=== PATIENT | female | born 1970 | race Caucasian/White ===

== ENCOUNTER 2018-02-27 14:57 | Inpatient (IN) | payer BC, OTHER ==
[~2018-02-27] VITALS: Ht 165.1 cm; Wt 125.0 kg
[~2018-02-27 14:57] MED LIST: ATENOLOL50 MG PO; MELOXICAM PO; NORCO 5-325 TA1 EACH PO
[2018-02-27] MEDS ORDERED: ASPIRIN 81 MG CHEW TAB PO ONE ×4 (15:15→21:30)
--- NOTE | 2018-02-27 15:38 | Diagnostic Imaging Report ---
PROCEDURE: A single AP view of the chest. COMPARISON: 03/22/2013 INDICATIONS: CHEST PAIN , SOB 2 DAYS FINDINGS: Examination is limited due to portable technique and patient rotation. Lines/tubes: None. Lungs: Nonspecific basilar opacities. Pleura: There is no pleural effusion or pneumothorax. Heart and mediastinum: The heart and the mediastinum are unremarkable. Bones: No acute bony abnormality. IMPRESSION: Limited examination due to patient rotation. Nonspecific basilar opacities could represent atelectasis or edema. Dictated by: Jim Cho M.D. on 02/27/2018 at 15:39 Electronically approved by: Jim Cho M.D. on 02/27/2018 at 15:39
[2018-02-27 15:47] LABS: BASOPHILS % 0.4 % (0.0-1.0); EOSINOPHILS # (AUTO) 0.2 (0.0-0.4); EOSINOPHILS % 1.4 % (0.0-6.0); HEMATOCRIT 43.1 % (34.2-44.1); HEMOGLOBIN 13.6 g/dL (12.0-16.0); LYMPHOCYTES # (AUTO) 2.5 (1.0-3.2); LYMPHOCYTES % 23.4 % (18.0-39.1); MEAN CORPUSCULAR HGB CONC 31.6 g/dL (31-35); MEAN CORPUSCULAR VOLUME 79.4 fL (81-99); MONOCYTES # (AUTO) 0.7 (0.2-0.8); MONOCYTES % 6.4 % (4.4-11.3); NEUTROPHILS # (AUTO) 7.1 (2.1-6.9); NEUTROPHILS % 68.1 % (38.7-80.0); PLATELET COUNT 267 x10e3/uL (140-360); RED BLOOD COUNT 5.43 x10e6/uL (3.6-5.1); RED CELL DISTRIBUTION WIDTH 15.8 % (11.7-14.4)
[2018-02-27 16:03] LABS: ALANINE AMINOTRANSFERASE 129 IU/L (0-55); ALBUMIN 3.1 g/dL (3.5-5.0); ALBUMIN/GLOBULIN RATIO 0.7 (0.8-2.0); ALKALINE PHOSPHATASE 134 IU/L (40-150); BLOOD UREA NITROGEN 11 mg/dL (7-26); BUN/CREATININE RATIO 14 (6-25); CALCIUM 9.5 mg/dL (8.4-10.2); CARBON DIOXIDE 28 mmol/L (22-29); CHLORIDE 98 mmol/L (98-107); CREATINE KINASE 28 IU/L (29-168); CREATININE, SERUM 0.77 mg/dL (0.57-1.11); EST GLOMERULAR FILTRATION RATE > 60 ML/MIN (60-); GLUCOSE 303 mg/dL (74-118); SODIUM 137 mmol/L (136-145)
[2018-02-27] MEDS ORDERED: HYDROCODONE/APAP 10MG-325MG TAB PO ONE (16:15)
[2018-02-27] MEDS ORDERED: SODIUM CHLORIDE 0.9% 50ML 50 ML ONE (17:32)
[2018-02-27] MEDS ORDERED: IOPAMIDOL 370 MG/ML 200 ML INFUS..BTL INJ ONE (17:33)
--- NOTE | 2018-02-27 17:42 | Diagnostic Imaging Report ---
PROCEDURE: CT scan of the chest WITH intravenous contrast, using standard protocol. TECHNIQUE: The chest was scanned utilizing a multidetector helical scanner from the lung apex through the level of the adrenal glands after the IV administration of 95 cc of Isovue 370. Coronal and sagittal multiplanar reformations were obtained. COMPARISON: None. INDICATIONS: CHEST PAIN, SHORTNESS OF BREATH FINDINGS: Limited examination due to respiratory motion artifact. Lines/tubes: None. Pulmonary Arteries: No evidence of pulmonary embolus to at least the segmental level. Evaluation of the small, subsegmental arteries is somewhat limited by motion artifact. The main pulmonary artery is normal in caliber, measuring 2.9 cm. Lungs and Airways: Mosaic attenuation of the lung parenchyma is likely related to air-trapping. Evaluation of the lung bases is limited due to respiratory motion artifact. Large airways are patent. Pleura: The pleural spaces are clear. Heart and mediastinum: The thyroid gland is normal. No significant mediastinal, hilar or axillary lymphadenopathy is seen. Mild cardiomegaly. No pericardial effusion. Atherosclerotic calcifications of the coronary arteries. Soft tissues: Normal. Abdomen: Hepatomegaly and diffuse hepatic steatosis. Small hiatal hernia. Bones: Multilevel degenerative changes of the thoracic spine. IMPRESSION: Somewhat limited examination due to respiratory motion artifact. No evidence of pulmonary embolus to at least the segmental level. Mosaic attenuation of the lung parenchyma, likely related to air-trapping. This can be seen with small airways disease (such as asthma). Dictated by: Jim Cho M.D. on 02/27/2018 at 17:43 Electronically approved by: Jim Cho M.D. on 02/27/2018 at 17:43
[2018-02-27] MEDS ORDERED: SODIUM CHLORIDE 0.9% 500ML 500 ML ONE (17:53)
[2018-02-27] MEDS ORDERED: DEXTROSE 50% SYRINGE 50 ML IV PRN (18:30)
[2018-02-27] MEDS ORDERED: NITROGLYCERIN 0.4 MG SUBL SL PRN (18:30)
[2018-02-27] MEDS ORDERED: HYDROMORPHONE 1MG/1ML INJ IV PRN (18:30)
--- OUTSIDE RECORDS SUMMARY | 2018-02-27 19:20 | XMS REPORT ---
Author Author [facility] Address Unknown Phone Unavailable Care Team Providers Care Circle Saw Operator Name Role Phone PABLO DOTSON Unavailable Unavailable Problems This patient has no known problems. Allergies, Adverse Reactions, Alerts This patient has no known allergies or adverse reactions. Medications This patient has no known medications. Results Test Description Test Time Test Comments Text Results Atomic Results Result Comments CHEST SINGLE (PORTABLE) [place] [address] Patient Name: KATERYNA CONNER MR #: [id number] : 1970 Age/Sex: 48/F Req #: [id number] Adm Physician: Ordered by: MARY LEO JUKE BOX MECHANIC Report #: [id number] Location: ER Room/Bed: ___ Procedure: [id number] DX/CHEST SINGLE (PORTABLE) Exam Date: 02/27/18 Exam Time: 1515 REPORT STATUS: Signed PROCEDURE : A single AP view of the chest. COMPARISON: 03/22/2013 INDICATIONS : CHEST PAIN , SOB 2 DAYS FINDINGS: Examination is limited due to portable technique and patient rotation. Lines/tubes: None. Lungs: Nonspecific basilar opacities. Pleura: There is no pleural effusion or pneumothorax. Heart and mediastinum: The heart and the mediastinum are unremarkable. Bones: No acute bony abnormality. IMPRESSION: Limited examination due to patient rotation. Nonspecific basilar opacities could represent atelectasis or edema. Dictated by: Estrella Cho M.D. on 02/27/2018 at 15:39 Electronically approved by: Estrella Cho M.D. on 02/27/2018 at 15:39 Dictated By: ESTRELLA CHO MD 1539 Transcribed By: MARICEL on 02/27/18 1539 COPY TO: MARY LEO JUKE BOX MECHANIC CT CHEST W [place] [address] Patient Name: KATERYNA CONNER MR #: [id number] : 1970 Age/Sex: 48/F Req #: [id number] Adm Physician: Ordered by: MARY LEO NP Report #: [id number] Location: ER Room/Bed: Procedure: [id number] CT/CT CHEST W Exam Date: 02/27/18 Exam Time: 1700 REPORT STATUS: Signed PROCEDURE: CT scan of the chest WITH intravenous contrast, using standard protocol. TECHNIQUE: The chest was scanned utilizing a multidetector helical scanner from the lung apex through the level of the adrenal glands after the IV administration of 95 cc of Isovue 370. Coronal and sagittal multiplanar reformations were obtained. COMPARISON: None. INDICATIONS: CHEST PAIN, SHORTNESS OF BREATH FINDINGS: Limited examination due to respiratory motion artifact. Lines/tubes: None. Pulmonary Arteries : No evidence of pulmonary embolus to at least the segmental level. Evaluation of the small, subsegmental arteries is somewhat limited by motion artifact. The main pulmonary artery is normal in caliber, measuring 2.9 cm. Lungs and Airways: Mosaic attenuation of the lung parenchyma is likely related to air-trapping. Evaluation of the lung bases is limited due to respiratory motion artifact. Large airways are patent. Pleura: The pleural spaces are clear. Heart and mediastinum: The thyroid gland is normal. No significant mediastinal, hilar or axillary lymphadenopathy is seen. Mild cardiomegaly. No pericardial effusion. Atherosclerotic calcifications of the coronary arteries. Soft tissues: Normal. Abdomen: Hepatomegaly and diffuse hepatic steatosis. Small hiatal hernia. Bones: Multilevel degenerative changes of the thoracic spine. IMPRESSION: Somewhat limited examination due to respiratory motion artifact. No evidence of pulmonary embolus to at least the segmental level. Mosaic attenuation of the lung parenchyma, likely related to air -trapping. This can be seen with small airways disease (such as asthma). Dictated by: Estrella Cho M.D. on 02/27/2018 at 17:43 Electronically approved by: Estrella Cho M.D. on 02/27/2018 at 17:43 Dictated By: ESTRELLA CHO MD 1743 Transcribed By: MARICEL on 02/27/18 1743 COPY TO: MARY LEO NP
[2018-02-27] MEDS ORDERED: SODIUM CHLORIDE 0.9% 1000ML 1,000 ML IV SCH (20:15)
[2018-02-27] MEDS ORDERED: SODIUM CHLORIDE 0.9% 1000ML 1,000 ML ONE (20:20)
[2018-02-27] MEDS ORDERED: SODIUM CHLORIDE 0.9% 1000ML 1,000 ML IV STA (20:48)
[2018-02-27 21:00] VITALS: BP 137/84
[2018-02-27] MEDS ORDERED: INSULIN REGULAR, HUMAN 100 UNIT/1 ML 3ML VIAL SQ SCH (21:00)
[2018-02-27 21:55] VITALS: BP 200/104
[2018-02-27] MEDS: HYDROMORPHONE 2MG/ML INJ IV PRN (22:10)
[2018-02-27 22:53] LABS: CREATINE KINASE MB 1.2 ng/mL (0-5.0)
[2018-02-27 23:19] LABS: INR 1.13; PARTIAL THROMBOPLASTIN TIME 30.9 seconds (23.8-35.5); PROTHROMBIN TIME 13.6 seconds (11.9-14.5)
[2018-02-27] MEDS: FUROSEMIDE INJ 10 MG/ML 2 ML VIAL IV SCH (23:28)
[2018-02-27] MEDS: NIFEDIPINE CR 30 MG TAB PO SCH (23:28)
[2018-02-27] MEDS: LABETALOL HCL 100 MG TAB PO SCH (23:29)
[2018-02-28] VITALS (10 sets, daily range): BP systolic 120–200; BP diastolic 61–104
[2018-02-28] MEDS: HYDROMORPHONE 2MG/ML INJ IV PRN (03:04)
[2018-02-28] MEDS ORDERED: NALOXONE HCL INJ 0.4 MG/ML AMP ONE (05:13)
[2018-02-28 06:42] LABS: CREATINE KINASE MB 1.9 ng/mL (0-5.0)
[2018-02-28] MEDS ORDERED: INSULIN REGULAR, HUMAN 100 UNIT/1 ML 3ML VIAL SQ ONE (08:15)
[2018-02-28] MEDS ORDERED: DEXTROSE 50% SYRINGE 50 ML IV PRN (08:15)
[2018-02-28] MEDS: ASPIRIN 325 MG TAB EC PO SCH (08:21)
[2018-02-28] MEDS: FAMOTIDINE 20 MG TAB PO SCH ×2 (08:21→17:48)
[2018-02-28] MEDS: FUROSEMIDE INJ 10 MG/ML 2 ML VIAL IV SCH ×2 (08:21→17:48)
[2018-02-28] MEDS: NIFEDIPINE CR 30 MG TAB PO SCH (08:22)
[2018-02-28] MEDS: LABETALOL HCL 100 MG TAB PO SCH (08:22)
--- NOTE | 2018-02-28 10:25 | Cardiology Report ---
DATE OF STUDY: February 27, 2018 ECHOCARDIOGRAM M-MODE: Dilated left atrium. Left ventricular hypertrophy. Normal contractility. Normal mitral and aortic valves. No pericardial effusion. SECTOR SCAN: Mildly dilated left atrium. Left ventricular hypertrophy. Normal contractility. Ejection fraction is approximately 60%. Mitral, aortic and tricuspid valves are grossly normal. There is no pericardial effusion. CARDIAC DOPPLER STUDY WITH COLOR: Trace mitral and tricuspid regurgitation. CONCLUSIONS 1. Left ventricular hypertrophy with ejection fraction of approximately 60%. 2. Trace mitral regurgitation with mildly dilated left atrium. 3. Trace tricuspid regurgitation. Job#: [id number] cc:PABLO DOTSON MD
--- NOTE | 2018-02-28 10:59 | Consultation ---
DATE OF CONSULTATION: CARDIOLOGY CONSULTATION CLINICAL HISTORY: This is a 48-year-old white woman referred by Dr. Apryl Sanz for evaluation of chest pains with a history of previous CVA and previous stenting. This patient had a coronary stent implanted 12 years ago in [place], [place]. Subsequently, she developed chest pains and had a stroke approximately 6 years ago. According to her, she has had a repeat cardiac catheterization in [place] somewhere around 6 years ago, which was negative. She has now currently moved to the [place] area. Has not had any cardiac evaluation. Has not any complaints of chest pains. Two days prior to admission, she was at work when she developed severe palpitations with pain radiating to the upper chest. She became near syncopal and fell to her rear, but did not completely become unconscious. She did not want to go to the emergency room. Over the next 2 days, she continued to have persistent chest pains rated as 7 on a scale of 10. She also had some chest wall tenderness. She finally decided to come to the emergency room. EKG failed to show any acute changes. She is being admitted for further evaluation and treatment. PAST MEDICAL HISTORY: Remarkable for the above-mentioned CVA with left-sided paralysis. MEDICATIONS: Include [place] and meloxicam. ALLERGIES: PENICILLIN AND MORPHINE. PERSONAL/SOCIAL HISTORY: She continues smoke 1/2 package per day. She denies excessive drinking. She denies any drug abuse. 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 REVIEW OF SYSTEMS: Noncontributory. She does have lower back pains possibly from the fall she had 2 days ago. FAMILY HISTORY: Remarkable for coronary artery disease. PHYSICAL EXAMINATION GENERAL: She is markedly obese, alert and coherent. Difficult to arouse because of sedatives and pain medications. CARDIAC: Jugular veins are not distended. S1 and S2 were distant. There is no appreciable murmur. LUNGS: Clear. ABDOMEN: Soft. Bowel sounds are present. EXTREMITIES: Showed no cyanosis, clubbing or edema. LABORATORY STUDIES: The echocardiogram showed normal left ventricular function. EKG showed no acute changes. CT scan of the chest is limited because of respiratory artifact. Apparently, no acute findings. Blood test: White count 10,000, hemoglobin 13.6 and platelet count 267,000. Toxicology is pending. Cardiac enzymes are negative times 3. Cholesterol 184, triglycerides 151, HDL 37. TSH is normal at 0.84. IMPRESSION 1. Atypical chest pains and tenderness, which has been persistent requiring Dilaudid: Consider musculoskeletal chest pains as well as coronary artery disease. 2. History of coronary stenting approximately 12 years ago in [place] with cardiac catheterization somewhere 6 or 7 years ago in [place] and said to be negative. 3. History of cerebrovascular accident with left-sided weakness. 4. Hypertension. 5. Cigarette smoking. 6. Allergies to penicillin and morphine. 7. Obesity. 8. Chronic pain medication usage. 9. History of anxiety and depression. RECOMMENDATIONS: Because of persistent chest pains and previous cardiac history, consider cardiac catheterization since we are unlikely to clearly resolve the issue with either nuclear imaging or with stress testing because of her obesity. Additionally, she had an episode of near syncope, which is suggestive of significant cardiac arrhythmia since she had palpitations and chest pains at that time. Additional cardiac catheterization, consider electrophysiology consultation. Job#: [id number] RI cc:APRYL SANZ MD
--- NOTE | 2018-02-28 11:21 | History and Physical ---
PRIMARY CARE PHYSICIAN: None CHIEF COMPLAINT: Chest pain. HISTORY OF PRESENT ILLNESS: A 48-year-old woman with a history of coronary artery disease with stent placement in 2005 and history of congestive heart failure with continued cigarette use, now developing chest discomfort. She describes the chest pain across the precordium. No fever or chills. Mild shortness of breath. She has chronic leg edema. Overnight, the patient received Dilaudid and became unresponsive. Rapid was called. The patient received 0.8 units of Narcan with improvement in symptoms. PAST MEDICAL HISTORY: Congestive heart failure, type unknown, hypertension, cigarette abuse, stroke in 2010, coronary artery disease, status post stent in 2005. PAST SURGICAL HISTORY: Coronary stent placement, appendectomy, temporal biopsy. ALLERGIES: PER ELECTRONIC MEDICAL RECORD. FAMILY HISTORY/SOCIAL HISTORY: Patient is single. She has 1 child. No alcohol or illicits. She smokes half a pack of cigarettes per day. MEDICATIONS: Per electronic medical record. REVIEW OF SYSTEMS: Denies any dizziness, fever, chills, or sweats. PHYSICAL EXAMINATION VITAL SIGNS: Have been reviewed. GENERAL: A tired-appearing woman resting in bed. HEENT: Anicteric. CARDIOVASCULAR: Normal S1 and S2. LUNGS: Moderate breath sounds. ABDOMEN: Soft, nontender and nondistended. EXTREMITIES: She has 1+ leg edema bilaterally. SKIN: Dry. PSYCHIATRIC: Flat affect. NEUROLOGIC: Somnolent and falling asleep quickly after being awoken each time. MUSCULOSKELETAL: Tender in the precordium. LABS: Reviewed. MEDICATIONS: Reviewed. ASSESSMENT AND PLAN: A 48-year-old woman with: 1. Chest pain, likely musculoskeletal: She is tender on palpation of the chest wall. Cardiac enzymes are negative times 3. Will follow up cardiology recommendations. Echocardiogram shows normal left ventricular ejection fraction of 55% to 60%. 2. Congestive heart failure with leg edema: Will continue Lasix 20 mg intravenously q.12 h. Follow I's and O's. 3. Acute transaminitis: Will follow up. 4. Hyperglycemia in the setting of morbid obesity: Will screen for diabetes and obtain lipid panel. 5. Morbid obesity: Screen for diabetes. 6. Hypertensive urgency: Will treat with medication regimen. 7. Excess narcotics during hospitalization: Received Narcan. Will monitor and will decide if she needs a Narcan drip. 8. Prophylaxis: Will use Pepcid and Lovenox. 9. Disposition: Monitor closely. Obtain hemoglobin A1c. Use sliding scale insulin. Monitor cognitive status. Job#: [id number] KATHE
[2018-02-28] MEDS: INSULIN REGULAR, HUMAN 100 UNIT/1 ML 3ML VIAL SQ SCH ×3 (11:30→21:15)
[2018-02-28] MEDS: INSULIN DETEMIR 100 UNIT/ML PEN SQ SCH (12:00)
[2018-02-28] MEDS: ACETAMINOPHEN 325 MG TAB PO PRN (15:58)
[2018-02-28] MEDS ORDERED: ENOXAPARIN SOD INJ 40 MG/0.4 ML SYR SC SCH (17:00)
[2018-02-28 23:00] LABS: CREATINE KINASE MB 2.1 ng/mL (0-5.0)
[2018-03-01 00:04] VITALS: BP 153/96
[2018-03-01] MEDS: NIFEDIPINE CR 30 MG TAB PO SCH ×3 (02:50→20:43)
[2018-03-01] MEDS: LABETALOL HCL 100 MG TAB PO SCH ×3 (02:50→20:44)
[2018-03-01 05:12] VITALS: BP 117/80
[2018-03-01] MEDS ORDERED: AMIODARONE HCL 200 MG TAB PO ONE (06:00)
[2018-03-01] MEDS: AMIODARONE HCL 200 MG TAB PO SCH ×3 (06:05→21:41)
[2018-03-01 08:00] VITALS: BP 120/58
[2018-03-01] MEDS: INSULIN REGULAR, HUMAN 100 UNIT/1 ML 3ML VIAL SQ SCH ×2 (08:07→12:27)
[2018-03-01 10:13] VITALS: BP 120/58
[2018-03-01] MEDS: ASPIRIN 325 MG TAB EC PO SCH (10:13)
[2018-03-01] MEDS: FUROSEMIDE INJ 10 MG/ML 2 ML VIAL IV SCH ×2 (10:13→16:44)
[2018-03-01] MEDS: FAMOTIDINE 20 MG TAB PO SCH ×2 (10:13→16:43)
[2018-03-01] MEDS: INSULIN DETEMIR 100 UNIT/ML PEN SQ SCH (10:15)
[2018-03-01 16:00] VITALS: BP 120/57
[2018-03-01] MEDS: INSULIN LISPRO 100 UNIT/1 ML 3ML VIAL SQ SCH ×3 (16:43→20:44)
[2018-03-01] MEDS: ENOXAPARIN SODIUM INJ 100 MG/ML SYR SC SCH (16:44)
--- NOTE | 2018-03-01 16:55 | Consultation ---
DATE OF CONSULTATION: REFERRING PHYSICIAN: Dr. Dean. REASON FOR CONSULT: Palpitations and syncope. HISTORY OF PRESENT ILLNESS: This is a 48-year-old woman with history of hypertension, diabetes, and obesity who has had palpitations. She states palpitations started about 4 months ago off and on. She feels palpitations were lasting about 1 to 5 minutes about every 3 or 4 weeks, she has had episodes of near syncope. She states she passed out once; however, does not remember if it was related to palpitations or not at that time and that occurred about 3 months ago. Patient at this time states she felt palpitations, she felt blurred vision and about to pass out, but she still remembered everything that happened so it is unclear whether she passed out or not. She does remember having palpitations prior to the episode. REVIEW OF SYSTEMS CONSTITUTIONAL: Negative. CARDIOVASCULAR: Otherwise, negative. RESPIRATORY: Negative. GASTROINTESTINAL: Negative. GENITOURINARY: Negative. MUSCULOSKELETAL: Negative. EYES: Negative. ENT: Negative. ALLERGY/IMMUNOLOGY: Negative. PSYCHIATRY: Negative. PAST MEDICAL HISTORY: Hypertension and diabetes. SURGICAL HISTORY: Negative. FAMILY HISTORY: No premature coronary artery disease. SOCIAL HISTORY: No smoking, alcohol, or illicit drugs. PHYSICAL EXAMINATION VITAL SIGNS: Blood pressure 146/60, pulse 70, respiration 20, and O2 sat is 98%. GENERAL: In no acute distress. HEENT: Moist mucous membranes. CARDIOVASCULAR: Regular. RESPIRATORY: Clear. ABDOMEN: Soft. MUSCULOSKELETAL: 2+ distal pulses. NEUROLOGICAL: No focal deficit. SKIN: No lesions. PSYCHIATRY: Normal thought process. EKG: Sinus rhythm. IMPRESSION: Palpitations and near syncope episodes. RECOMMENDATIONS: Patient is undergoing close monitoring. Currently, she is in sinus rhythm on telemetry with no arrhythmias. Patient has had some palpitations that may correlate with arrhythmias. At this time, I agree with current workup by Dr. Dean. He is going to perform ischemic workup since she has history of coronary stents, best recommendation is to have close monitoring. We will arrange for a 3 or 4-week event monitoring as an outpatient in clinic. If this does not catch any of the events, then we will consider a loop recorder monitoring. Thank you for letting us participate in [facility]. For now, I agree with continuing the beta leah. Job#: [id number] ERENDIRA
--- NOTE | 2018-03-01 17:17 | Progress Note ---
DATE: March 01, 2018 PROGRESS NOTE TIME: 1600 hours. OVERNIGHT: New-onset of AFib with RVR, refused Nitro for reports of chest pain. REVIEW OF SYSTEMS: Patient continues to complain of chest pain and mild shortness of breath. Patient further reports gasping during night when she tries to sleep. Denies nausea, vomiting, or diarrhea. Continues to report headache and occasional dizziness. PHYSICAL EXAMINATION VITAL SIGNS: Temperature 96.2, pulse 107 and irregular on telemetry, respiratory rate 19, blood pressure 120/58, and O2 sat 97% on 2 liters. GENERAL APPEARANCE: This is a tired-appearing, lying supine in bed. HEENT: Normocephalic. Slight sinus tenderness. Nares patent. Oropharynx poorly visualized due to tissue. CARDIOVASCULAR: S1 and S2 auscultated with irregular rate noted. LUNGS: Moderate breath sounds at bases. ABDOMEN: Soft, not tender, and not distended. EXTREMITIES: Leg edema +1 to bilateral lower extremities. SKIN: Dry. PSYCHIATRIC: Flat affect. NEUROLOGICAL: Cranial nerves 2 through 12 intact. Positive gross motor intact. MUSCULOSKELETAL: Slight tenderness to the precordium upon palpation. LABS: WBCs are 10.48, H and H 13.6 and 43.1 respectively, and platelets 267. Chemistries reviewed. Toxicologies are pending. MEDICATIONS 1. Amiodarone 400 mg p.o. q. 8 hours. 2. Sliding scale insulin. 3. Insulin Detemir 7 units subcu daily. 4. Pepcid 20 mg b.i.d. a.c. 5. Lasix 20 mg b.i.d. IV. 6. Nifedipine 60 mg q. 12 hours p.o. 7. Labetalol 100 mg q. 12 hours p.o. 8. Aspirin 325 mg in the morning. 9. P.r.n. Nitrostat. 10. P.r.n. Tylenol. 11. Lovenox 100 mg b.i.d. subcu; initial dose pending. 12. Fioricet q. 8 hours p.r.n. headache. 13. P.r.n. dextrose. 14. P.r.n. sodium chloride. ASSESSMENT AND PLAN: This is a 48-year-old woman with; 1. Chest pain, most likely musculoskeletal as troponins were negative. Left ventricular ejection fraction 55%-60%. Possible coronary artery disease with cardiac catheterization pending. 2. Congestive heart failure with leg edema, continue diuresis with Lasix q. 12 hours. I and O negative approximately 7 liters since admission. 3. Acute transaminitis, follow along. 4. Hyperglycemia in the setting of morbid obesity, hemoglobin A1c 9.5, triglycerides 151, cholesterol 184, LDL 117, and HDL 37. We will initiate tighter glucose control. 5. Morbid obesity. 6. Hypertensive urgency, treated per medication regimen. Cardiology consult noted this day. 7. Excessive narcotics during hospitalization. Narcan provided and episode resolved. 1. Prophylaxis, Pepcid and Lovenox. 2. Disposition. We will advance sliding scale insulin, patient being loaded per cardiology with amiodarone and anticoagulation initiated per cardiology for atrial fibrillation with rapid ventricular rate. We will follow values in the morning. Dictated by Celina Fernandes NP. Job#: [id number] ERENDIRA
[2018-03-01 17:53] LABS: FREE T4 (FREE THYROXINE) 1.09 ng/dL (0.9-1.8); THYROID STIMULATING HORMONE 3.399 uIU/mL (0.350-4.940)
--- NOTE | 2018-03-01 18:45 | Consultation ---
DATE OF CONSULTATION: February 28, 2018 ENDOCRINE CONSULTATION PATIENT OF: 1. Dr. Martinez. 2. Dr. Bae. Thank you very much for referring this patient. HISTORY OF PRESENT ILLNESS: This is a 48-year-old white female who is referred to me for evaluation of new-onset hyperglycemia and diabetes mellitus. Patient came to the hospital with history of chest pain. She has a significant history of coronary artery disease, congestive cardiac failure, and status post coronary stent placement. She also has history of hypertension, hyperlipidemia, she is an ex-smoker, and status post CVA in the past. Patient does have family history of diabetes mellitus. Patient is on multiple medications presently including labetalol, amiodarone for cardiac arrhythmias, and Lasix. PHYSICAL EXAMINATION GENERAL: Today, the patient is alert and awake, a little bit apprehensive. She is moderate to morbidly obese. VITALS: Her heart rate is around 86 and blood pressure 136/86 mmHg. HEENT: Essentially unremarkable. Thyroid is palpable. Clinically, she is near euthyroid. CHEST: Bilateral vesicular breathing. She is with bilateral bronchospasm and basilar rales. CARDIAC: First and second heart sounds. There is no third or fourth heart sounds. Ejection systolic murmur grade 2/6. EXTREMITIES: The patient has evidence of diabetic sensory neuropathy in both lower extremities. CLINICAL IMPRESSION 1. New-onset hyperglycemia, diabetes mellitus type 2, uncontrolled with complications. 2. Coronary artery disease, status post stent placement. 3. Chronic obstructive pulmonary disease, ex-smoker. 4. Status post cardiovascular accident. 5. Hypertension. 6. Cardiac arrhythmias. PLAN: The plan at this time is to do a free T4, TSH, anti-peroxidase antibodies, and glycohemoglobin repeat. We will be starting on the combination of the Levemir and Humalog insulin. Monitor her blood sugars closely. Patient needs extensive dietary education and stop smoking completely. Thank you for referring this patient. I will be following this patient with you. Job#: [id number] ERENDIRA
[2018-03-01 20:00] VITALS: BP 123/63
[2018-03-01] MEDS ORDERED: INSULIN DETEMIR 100 UNIT/ML PEN SQ SCH (21:00)
[2018-03-02] VITALS (8 sets, daily range): BP systolic 117–132; BP diastolic 64–77
[2018-03-02] MEDS: AMIODARONE HCL 200 MG TAB PO SCH ×3 (05:26→21:35)
[2018-03-02 06:20] LABS: BASOPHILS # (AUTO) 0.1 (0.0-0.1); BASOPHILS % 0.6 % (0.0-1.0); EOSINOPHILS # (AUTO) 0.3 (0.0-0.4); EOSINOPHILS % 3.2 % (0.0-6.0); HEMOGLOBIN 12.2 g/dL (12.0-16.0); LYMPHOCYTES % 23.2 % (18.0-39.1); MEAN CORPUSCULAR HEMOGLOBIN 24.5 pg (28-32); MEAN CORPUSCULAR HGB CONC 30.5 g/dL (31-35); MEAN CORPUSCULAR VOLUME 80.5 fL (81-99); MONOCYTES # (AUTO) 0.5 (0.2-0.8); MONOCYTES % 5.9 % (4.4-11.3); NEUTROPHILS # (AUTO) 5.7 (2.1-6.9); NEUTROPHILS % 66.7 % (38.7-80.0); PLATELET COUNT 232 x10e3/uL (140-360); RED BLOOD COUNT 4.97 x10e6/uL (3.6-5.1); RED CELL DISTRIBUTION WIDTH 15.7 % (11.7-14.4)
--- NOTE | 2018-03-02 06:32 | Diagnostic Imaging Report ---
EXAM: CHEST SINGLE (PORTABLE), AP 1 view INDICATION: Congestive heart failure COMPARISON: AP view of the chest February 27, 2018 FINDINGS: LINES/TUBES: None LUNGS: Stable interstitial edema PLEURA: No effusions or pneumothorax. HEART AND MEDIASTINUM: Stable appearance BONES AND SOFT TISSUES: No acute findings. IMPRESSION: No significant interval change. Interstitial edema. Signed by: Dr. Araceli Anderson M.D. on 03/02/2018 6:28 AM
[2018-03-02 06:45] LABS: ANION GAP 13.9 mmol/L (8-16); BLOOD UREA NITROGEN 12 mg/dL (7-26); BUN/CREATININE RATIO 18 (6-25); CALCIUM 9.1 mg/dL (8.4-10.2); CARBON DIOXIDE 29 mmol/L (22-29); CHLORIDE 98 mmol/L (98-107); CREATININE, SERUM 0.65 mg/dL (0.57-1.11); EST GLOMERULAR FILTRATION RATE > 60 ML/MIN (60-); GLUCOSE 211 mg/dL (74-118); POTASSIUM 3.9 mmol/L (3.5-5.1); SODIUM 137 mmol/L (136-145)
[2018-03-02] MEDS: INSULIN LISPRO 100 UNIT/1 ML 3ML VIAL SQ SCH ×5 (07:30→21:34)
[2018-03-02] MEDS: LABETALOL HCL 100 MG TAB PO SCH ×2 (08:02→21:33)
[2018-03-02] MEDS: NIFEDIPINE CR 30 MG TAB PO SCH ×2 (08:02→21:33)
[2018-03-02] MEDS: FAMOTIDINE 20 MG TAB PO SCH ×2 (08:02→17:05)
[2018-03-02] MEDS: FUROSEMIDE INJ 10 MG/ML 2 ML VIAL IV SCH ×2 (08:02→17:06)
[2018-03-02] MEDS: ASPIRIN 325 MG TAB EC PO SCH (08:02)
[2018-03-02] MEDS: ENOXAPARIN SODIUM INJ 100 MG/ML SYR SC SCH ×2 (08:02→17:22)
[2018-03-02] MEDS: ACETAMIN/BUTALBITAL/CAFFEINE TAB PO PRN ×2 (12:14→21:45)
--- NOTE | 2018-03-02 12:14 | Progress Note ---
DATE: March 02, 2018 TIME: 11:15 a.m. OVERNIGHT: No acute events. Patient transferred from one floor to another related to in-room mechanical issues. REVIEW OF SYSTEMS: Patient reports no chest pain or shortness of breath at this time. Denies nausea, vomiting or diarrhea. Continues to report headache intermittently without dizziness. PHYSICAL EXAMINATION VITAL SIGNS: T 97.5, P 91, respirations 22, pulse ox 95% on room air this day. GENERAL APPEARANCE: This is a tired-appearing woman lying supine in bed. HEENT: Normocephalic. No sinus tenderness. Nares are patent. Oropharynx still poorly visualized; however, oral mucosa is moist and intact. CARDIOVASCULAR: S1 and S2 auscultated with regular rate and regular rhythm noted per tele. LUNGS: Breath sounds in bilateral pop clear to auscultation this day. EXTREMITIES: Leg edema scant bilaterally. SKIN: Dry. PSYCHIATRIC: Flat affect. NEUROLOGICAL: Moves all extremities. Cranial nerves II through XII remain intact with positive gross motor skills present. MUSCULOSKELETAL: Tenderness to the precordium upon palpation. LABS: WBCs are 8.54, hemoglobin 12.2, hematocrit 40, platelets 232. Chemistries this a.m. with Na 137, K 3.9, Cl 98, CO2 29, gap 13.9, BUN 12, creatinine 0.65. POC glucose ranging from 352 to 289 in the last 24 hours. MEDICATIONS: Reviewed. ASSESSMENT AND PLAN: This is a 48-year-old woman with: 1. Chest pain, most likely musculoskeletal. Troponins are negative times 3. EF 55% to 60%. Previous history of coronary artery disease with cardiac catheterization pending. Discussed with cardiology this a.m. 2. Congestive heart failure with leg edema. Gentle diuresis with Lasix q.12 h. I and O negative x8 liters thus far. 3. Acute transaminitis. Follow as outpatient. 4. Hyperglycemia in the setting of morbid obesity. Admission hemoglobin A1c was 9.5, TG 151, cholesterol 184, LDL 115, and HDL 37. Glucose control initiated by consult on 03/01/2018. 5. Morbid obesity. Calorie restriction as an outpatient. 6. Hypertensive urgency, treated per medication regimen. Cardiology consult appreciated. Discussed at bedside today. 7. Excessive narcotics during hospitalization. Narcan provided with resolution of episode. 8. Prophylaxis: Pepcid and Lovenox. 9. Disposition: Glucose management per consult. Patient converted to sinus rhythm this day after amiodarone bolus and continued administration. Anticoagulated per card. Bedside CPAP well tolerated and appreciated by patient. Would benefit with CPAP as outpatient. Cardiac catheterization pending per Dr. Dean on Saturday of this week. Follow up values in a.m. Dictated by Celina Fernandes NP. Job#: [id number]
[2018-03-02] MEDS: ACETAMINOPHEN 325 MG TAB PO PRN (14:13)
[2018-03-02] MEDS ORDERED: INSULIN LISPRO 100 UNIT/1 ML 3ML VIAL SQ SCH (16:30)
[2018-03-02] MEDS ORDERED: INSULIN DETEMIR 100 UNIT/ML PEN SQ SCH (21:00)
[2018-03-03] VITALS (9 sets, daily range): BP systolic 119–144; BP diastolic 62–88
[2018-03-03] MEDS: AMIODARONE HCL 200 MG TAB PO SCH ×3 (06:03→21:29)
--- NOTE | 2018-03-03 07:57 | Progress Note ---
DATE: March 03, 2018 TIME: 7:27 a.m. OVERNIGHT: Some blood in the urine. REVIEW OF SYSTEMS: Denies any chest pain. PHYSICAL EXAMINATION VITAL SIGNS: Reviewed. GENERAL: This is a tired-appearing woman, resting in bed. HEENT: Anicteric. CARDIOVASCULAR: Normal S1 and S2 without murmurs. ABDOMEN: Soft, nontender, nondistended. EXTREMITIES: Trace edema. SKIN: Dry. PSYCHIATRIC: Flat affect. LABS: Reviewed. MEDICATIONS: Reviewed. ASSESSMENT: A 48-year-old woman with: 1. Chest pain. 2. Congestive heart failure with leg edema. 3. Acute transaminitis. 4. Hyperglycemia. 5. Morbid obesity. 6. Hypertensive urgency. 7. Hematuria. PLAN 1. Cardiac enzymes negative. 2. The patient is on Lovenox, but having hematuria. 3. Will hold Lovenox if the patient is having hematuria. 4. Hemoglobin A1c 9.6, LDL 117 and triglycerides 151. 5. No growth on blood culture. Will titrate the medication up. 6. Heart catheterization pending tomorrow. Job#: [id number]
[2018-03-03] MEDS: NIFEDIPINE CR 30 MG TAB PO SCH ×2 (08:46→21:29)
[2018-03-03] MEDS: LABETALOL HCL 100 MG TAB PO SCH ×2 (08:46→21:29)
[2018-03-03] MEDS: FUROSEMIDE INJ 10 MG/ML 2 ML VIAL IV SCH ×2 (08:46→17:31)
[2018-03-03] MEDS: FAMOTIDINE 20 MG TAB PO SCH ×2 (08:46→17:29)
[2018-03-03] MEDS: INSULIN LISPRO 100 UNIT/1 ML 3ML VIAL SQ SCH ×8 (08:46→21:32)
[2018-03-03] MEDS: ASPIRIN 325 MG TAB EC PO SCH (08:47)
[2018-03-03] MEDS: ENOXAPARIN SODIUM INJ 100 MG/ML SYR SC SCH ×2 (08:48→17:00)
--- NOTE | 2018-03-03 09:28 | Consultation ---
DATE OF CONSULTATION: March 03, 2018 UROLOGY CONSULTATION REASON FOR CONSULTATION: Gross hematuria. HISTORY OF PRESENT ILLNESS: Alyson Mo is a 48-year-old woman without any previous urological evaluation. She has never had hematuria nor urolithiasis. She has never seen a urologist. The patient was admitted for congestive heart failure and chest pain. She is pending a heart catheterization tomorrow. The patient had a Thompson catheter in place that was removed due to complaints of discomfort. Last night, the patient had gross hematuria. Urological consultation was subsequently sought. The patient has mild dysuria, which she attributes to the Thompson catheter. PAST MEDICAL AND SURGICAL HISTORY 1. 1, para 1, by spontaneous vaginal delivery. 2. Status post appendectomy. 3. Hypertension. 4. Diabetes. 5. Obesity. 6. Status post temporal artery bypass which showed inflammation. 7. Status post coronary stent placement. 8. Status post cerebrovascular accident in 2010. ALLERGIES: PLEASE REFER TO THE MAR. CURRENT MEDICATIONS: Please refer to the MAR. FAMILY HISTORY: Noncontributory to the active urological problems. SOCIAL HISTORY: The patient smokes 1/2 pack per day of cigarettes. She denies ethanol or drug use. 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 REVIEW OF SYSTEMS: As discussed above in the history of present illness and past medical history, otherwise negative for all systems. PHYSICAL EXAMINATION GENERAL: Very pleasant, 48-year-old woman lying in bed in no apparent distress. VITAL SIGNS: She is currently afebrile, and the vital signs are currently stable. ABDOMEN: Soft, nondistended and nontender. Obese. There is no costovertebral angle tenderness. For the remaining physical examination systems, please refer to the admission history and physical on the chart and the other consultants' notes. LABORATORY STUDIES: White blood cell count is 8540, hemoglobin 12.2, platelets 232,000. The patient's creatinine is normal at 0.65. The patient had a random urine culture 4 years ago that was "contaminated." ASSESSMENT 1. Gross hematuria. 2. Dysuria that is improving. 3. Morbid obesity. 4. Smoker. PLAN 1. Hold Lovenox. 2. Hold aspirin. 3. I will order a CT hematuria protocol to evaluate the urinary tract. 4. Cystoscopic examination at some point will be warranted. Thank you very much for involving us in the care of your patient. We will be happy to follow her along with you, as well as an outpatient. Job#: [id number] cc:RONEN CROWELL DO
[2018-03-03] MEDS ORDERED: SODIUM CHLORIDE 0.9% 250ML 250 ML ONE (11:39)
--- NOTE | 2018-03-03 13:02 | Diagnostic Imaging Report ---
EXAM: CT Abdomen and Pelvis WITHOUT and WITH contrast INDICATION: \S\HEMATURIA PROTOCOL \S\[id number] \S\1150 COMPARISON: None. TECHNIQUE: Abdomen and pelvis were scanned utilizing a multidetector helical scanner from the lung base to the pubic symphysis before and after administration of IV contrast. Coronal and sagittal reformations were obtained. Hematuria (CT Urogram) protocol was performed. Scan was performed pre- in supine position and nephrogenic/excretory phase with a 10 minute split bolus in prone position. IV CONTRAST: 150 mL of Isovue-370 ORAL CONTRAST: Water COMPLICATIONS: None RADIATION DOSE: Total DLP: 1700.64 mGy*cm Estimated effective dose: (DLP x 0.015 x size factor) mSv CTDIvol has been reviewed. It is below the limits set by the Radiation Protocol Committee (RPC). FINDINGS: LINES and TUBES: None. LOWER THORAX: Dependent atelectasis. HEPATOBILIARY: Hepatomegaly with geographic areas of fat deposition. No focal hepatic lesions. No biliary ductal dilation. GALLBLADDER: No radio-opaque stones or sludge. No wall thickening. SPLEEN: No splenomegaly. PANCREAS: No focal masses or ductal dilatation. ADRENALS: No adrenal nodules KIDNEYS/URETERS: Kidneys: Normal appearance bilaterally. No hydronephrosis or perinephric stranding. Cyst: None. Mass: None. Stones: None. Superior pole right renal calcifications are probably vascular. Upper collecting systems: No irregularities or filling defects. Ureters: There are segments of bilateral ureters which are not opacified, without proximal dilatation, likely due to peristalsis. Bladder: No mass or filling defects. GI TRACT: No abnormal distention, wall thickening, or evidence of bowel obstruction. Appendix is normal. Oval hyperdensity within distal esophagus, probably an ingested pill (series 3, image 27). Small hiatal hernia. PELVIC ORGANS/BLADDER: Uterus appears myomatous. LYMPH NODES: No lymphadenopathy. VESSELS: There is mild atherosclerotic disease in the aorta and major arterial branches. PERITONEUM / RETROPERITONEUM: No free air or fluid. BONES: Unremarkable. Degenerative changes of the visualized thoracic spine. SOFT TISSUES: Unremarkable. IMPRESSION: 1. No nephrolithiasis or evidence of obstructive urolithiasis. 2. No filling defects within opacified ureters/collecting system. 3. Hepatomegaly with areas of fat deposition. Signed by: Dr. Shaw Stewart MD on 03/03/2018 12:58 PM
[2018-03-03] MEDS ORDERED: SODIUM CHLORIDE 0.9% 50ML 50 ML ONE (14:07)
[2018-03-03] MEDS ORDERED: IOPAMIDOL 370 MG/ML 200 ML INFUS..BTL INJ ONE (14:07)
[2018-03-03] MEDS ORDERED: SODIUM CHLORIDE FLUSH 10 ML SYR INJ PRN (18:45)
[2018-03-03] MEDS ORDERED: ALPRAZOLAM 0.5 MG TAB PO PRN (18:45)
[2018-03-03] MEDS: INSULIN DETEMIR 100 UNIT/ML PEN SQ SCH (21:30)
[2018-03-04] VITALS (20 sets, daily range): BP systolic 127–152; BP diastolic 71–91
[2018-03-04] MEDS: AMIODARONE HCL 200 MG TAB PO SCH ×3 (06:06→21:50)
[2018-03-04 07:13] LABS: BASOPHILS % 0.6 % (0.0-1.0); EOSINOPHILS # (AUTO) 0.3 (0.0-0.4); EOSINOPHILS % 3.9 % (0.0-6.0); HEMATOCRIT 42.3 % (34.2-44.1); HEMOGLOBIN 13.2 g/dL (12.0-16.0); LYMPHOCYTES # (AUTO) 1.7 (1.0-3.2); LYMPHOCYTES % 24.3 % (18.0-39.1); MEAN CORPUSCULAR HEMOGLOBIN 24.8 pg (28-32); MEAN CORPUSCULAR HGB CONC 31.2 g/dL (31-35); MEAN CORPUSCULAR VOLUME 79.5 fL (81-99); MONOCYTES # (AUTO) 0.6 (0.2-0.8); MONOCYTES % 7.8 % (4.4-11.3); NEUTROPHILS # (AUTO) 4.5 (2.1-6.9); NEUTROPHILS % 62.8 % (38.7-80.0); PLATELET COUNT 269 x10e3/uL (140-360); RED BLOOD COUNT 5.32 x10e6/uL (3.6-5.1); RED CELL DISTRIBUTION WIDTH 15.9 % (11.7-14.4)
--- NOTE | 2018-03-04 07:20 | Progress Note ---
DATE: March 04, 2018 TIME: 6 a.m. OVERNIGHT: No more hematuria. REVIEW OF SYSTEMS: Denies any chest pain. PHYSICAL EXAMINATION VITAL SIGNS: Reviewed. GENERAL: A tired-appearing woman resting in bed. HEENT: Anicteric. CARDIOVASCULAR: Normal S1 and S2. LUNGS: Moderate breath sounds. ABDOMEN: Soft and nontender. EXTREMITIES: No edema. SKIN: Dry. PSYCHIATRIC: Flat affect. LABS: Reviewed. MEDICATIONS: Reviewed. ASSESSMENT: A 43-year-old woman with: 1. Chest pain. 2. Congestive heart failure with leg edema. 3. Acute transaminitis. 4. Hyperglycemia with diagnosis of diabetes mellitus: Hemoglobin A1c 9.6, LDL 117 and triglycerides 151. 5. Morbid obesity. 6. Hypertensive urgency. 7. Hematuria. PLAN 1. Hematuria has resolved. 2. Follow up CT scan. 3. Cardiac procedure planned for today. 4. All cultures remain negative. 5. The patient remains on antibiotics. 6. CT scan of the abdomen and pelvis shows no filling defects. Only finding of hepatomegaly. Job#: [id number] MI
[2018-03-04 07:27] LABS: INR 1.04; PROTHROMBIN TIME 12.8 seconds (11.9-14.5)
[2018-03-04 07:28] LABS: PARTIAL THROMBOPLASTIN TIME 32.6 seconds (23.8-35.5)
[2018-03-04] MEDS: FAMOTIDINE 20 MG TAB PO SCH ×2 (07:30→17:33)
[2018-03-04] MEDS: INSULIN LISPRO 100 UNIT/1 ML 3ML VIAL SQ SCH ×7 (07:30→21:26)
[2018-03-04 07:38] LABS: ANION GAP 15.1 mmol/L (8-16); BLOOD UREA NITROGEN 13 mg/dL (7-26); BUN/CREATININE RATIO 19 (6-25); CALCIUM 9.6 mg/dL (8.4-10.2); CARBON DIOXIDE 28 mmol/L (22-29); CHLORIDE 97 mmol/L (98-107); CREATININE, SERUM 0.68 mg/dL (0.57-1.11); EST GLOMERULAR FILTRATION RATE > 60 ML/MIN (60-); GLUCOSE 186 mg/dL (74-118); POTASSIUM 4.1 mmol/L (3.5-5.1); SODIUM 136 mmol/L (136-145)
[2018-03-04] MEDS: FUROSEMIDE INJ 10 MG/ML 2 ML VIAL IV SCH ×2 (09:00→17:33)
[2018-03-04] MEDS: NIFEDIPINE CR 30 MG TAB PO SCH ×2 (09:00→21:26)
[2018-03-04] MEDS: LABETALOL HCL 100 MG TAB PO SCH ×2 (09:00→21:35)
[2018-03-04] MEDS ORDERED: LIDOCAINE HCL 2% LOCAL 20 ML VIAL ONE (09:10)
[2018-03-04] MEDS ORDERED: HEPARIN SOD/SOD CHLORIDE 2,000 ML ONE (09:10)
[2018-03-04] MEDS ORDERED: IOPAMIDOL 370 MG/ML 200 ML INFUS..BTL INJ ONE ×2 (09:10→10:14)
[2018-03-04] MEDS ORDERED: FENTANYL CITRATE/PF 100MCG/2 ML INJ ONE (09:26)
[2018-03-04] MEDS ORDERED: MIDAZOLAM HCL 2 MG/2 ML VIAL ONE (09:26)
[2018-03-04] MEDS ORDERED: SODIUM CHLORIDE 0.9% 1000ML 1,000 ML ONE (09:27)
[2018-03-04] MEDS ORDERED: NITROGLYCERIN/D5W 200 MCG/ML 250 ML ONE (10:48)
[2018-03-04] MEDS ORDERED: HEPARIN SOD (PORCINE) 1000 UNIT/ML 30ML ONE (10:48)
[2018-03-04] MEDS ORDERED: EPTIFIBATIDE 100 ML ONE ×3 (10:49→22:59)
[2018-03-04] MEDS ORDERED: VERAPAMIL HCL 2.5 MG/ML 2 ML VIAL ONE (10:53)
[2018-03-04] MEDS ORDERED: HYDROMORPHONE 2MG/ML INJ IV ONE (11:15)
[2018-03-04] MEDS ORDERED: CLOPIDOGREL BISULFATE 75 MG TAB ONE (11:42)
[2018-03-04] MEDS: SODIUM CHLORIDE 0.9% 1000ML 1,000 ML IV SCH ×2 (12:02→20:50)
[2018-03-04] MEDS ORDERED: EPTIFIBATIDE IV SCH (12:15)
[2018-03-04] MEDS ORDERED: SODIUM CHLORIDE 0.9% IV SCH (12:15)
[2018-03-04] MEDS: EPTIFIBATIDE 100 ML IV SCH ×3 (13:00→23:25)
--- NOTE | 2018-03-04 13:43 | Operative Report ---
DATE OF PROCEDURE: ATTENDING PHYSICIAN: Apryl Sanz MD CLINICAL HISTORY AND INDICATIONS: This is a 48-year-old white woman who presented with syncope and chest pains, with chest pains unresolved even at rest. There is a history of previous coronary stenting. After discussing the various diagnostic and treatment alternatives and given the fact that the patient is severely obese, we decided a stress test may not be satisfactory and thus decided for cardiac catheterization and possible angioplasty and stenting, the risks, benefits and alternatives being explained and understood. PROCEDURE: She was brought to the cardiac catheterization laboratory in a fasting and sedated state. Because she had not had a test, this was done, which was negative. After approximately 45 minutes, we could proceed. The patient was prepped and draped in the usual manner. Using aseptic technique, Betadine skin preparation, lidocaine local anesthesia, the right femoral artery was entered using the modified Seldinger technique. A 4-Guamanian sheath was inserted inside this vessel. Diagnostic coronary angiography was carried out using 4-Guamanian #4 Reina catheters. The patient had a 99% mid-circumflex stenosis measuring approximately 2.5 mm in vessel size. Elsewhere, there was a 40% ostial circumflex stenosis, 50% stenosis following the 1st large obtuse marginal artery, and 70% stenosis in the ostial dominant RCA. The ostial RCA also had a gradient of approximately 20 mm. We considered bypass surgery, but decided to proceed with angioplasty and stenting after further discussion with the patient. The 4-Guamanian sheath was then exchanged for a 6-Guamanian sheath. The patient was given intracoronary heparin, nitroglycerin and verapamil as well as intravenous Integrilin. Using an XB4 6-Guamanian guiding catheter, we were able to pass a Hi-torque floppy wire predilated with a 2 x 20 mm balloon and stent with 2.5 x 12 mm medicated stent. The final result was excellent. All of the equipment was then withdrawn. Hemostasis was achieved with a StarClose device after multiple iliac angiograms to document the proper location of entry. The patient tolerated the procedure well. CONCLUSIONS 1. A 99% mid-circumflex stenosis successfully treated with 2.5 x 12 mm medicated stent. 2. Residual 70% ostial right coronary artery stenosis with 20 mm gradient with pressure dropping from 141 mmHg to 121 mmHg on pullback, possibly requiring future angioplasty and stenting. 3. Mild disease involving the ostial circumflex and the circumflex at the level of the 1st large obtuse marginal to be treated medically. 4. A 40% distal left anterior descending stenosis to be treated medically. Job#: [id number] cc:APRYL SANZ MD
[2018-03-04] MEDS: ASPIRIN 325 MG TAB ONE ×2 (16:58→17:17)
[2018-03-04] MEDS: ATORVASTATIN 20 MG TAB PO SCH (21:25)
[2018-03-04] MEDS: INSULIN DETEMIR 100 UNIT/ML PEN SQ SCH (21:32)
[2018-03-04] MEDS: ACETAMIN/BUTALBITAL/CAFFEINE TAB PO PRN (23:06)
[2018-03-05 03:13] VITALS: BP 140/81
[2018-03-05] MEDS: EPTIFIBATIDE 100 ML IV SCH (04:02)
[2018-03-05] MEDS: AMIODARONE HCL 200 MG TAB PO SCH (05:35)
[2018-03-05 06:23] LABS: BASOPHILS % 0.5 % (0.0-1.0); EOSINOPHILS # (AUTO) 0.2 (0.0-0.4); HEMATOCRIT 39.6 % (34.2-44.1); HEMOGLOBIN 12.2 g/dL (12.0-16.0); LYMPHOCYTES # (AUTO) 1.8 (1.0-3.2); MEAN CORPUSCULAR HEMOGLOBIN 24.7 pg (28-32); MEAN CORPUSCULAR HGB CONC 30.8 g/dL (31-35); MEAN CORPUSCULAR VOLUME 80.3 fL (81-99); MONOCYTES # (AUTO) 0.6 (0.2-0.8); MONOCYTES % 8.2 % (4.4-11.3); NEUTROPHILS # (AUTO) 4.8 (2.1-6.9); NEUTROPHILS % 63.8 % (38.7-80.0); PLATELET COUNT 241 x10e3/uL (140-360); RED BLOOD COUNT 4.93 x10e6/uL (3.6-5.1); RED CELL DISTRIBUTION WIDTH 15.9 % (11.7-14.4)
[2018-03-05 06:53] LABS: ANION GAP 12.5 mmol/L (8-16); BLOOD UREA NITROGEN 13 mg/dL (7-26); BUN/CREATININE RATIO 19 (6-25); CALCIUM 8.9 mg/dL (8.4-10.2); CARBON DIOXIDE 29 mmol/L (22-29); CHLORIDE 99 mmol/L (98-107); CREATININE, SERUM 0.67 mg/dL (0.57-1.11); EST GLOMERULAR FILTRATION RATE > 60 ML/MIN (60-); GLUCOSE 244 mg/dL (74-118); POTASSIUM 4.5 mmol/L (3.5-5.1); SODIUM 136 mmol/L (136-145)
[2018-03-05 07:51] VITALS: BP 143/92
[2018-03-05 08:00] VITALS: BP 143/92
[2018-03-05] MEDS: INSULIN LISPRO 100 UNIT/1 ML 3ML VIAL SQ SCH ×7 (08:30→20:52)
[2018-03-05] MEDS: FAMOTIDINE 20 MG TAB PO SCH ×2 (08:43→17:00)
[2018-03-05] MEDS: CLOPIDOGREL BISULFATE 75 MG TAB PO SCH (08:44)
[2018-03-05] MEDS: FUROSEMIDE INJ 10 MG/ML 2 ML VIAL IV SCH ×2 (08:44→17:00)
[2018-03-05] MEDS: LABETALOL HCL 100 MG TAB PO SCH ×2 (08:44→20:07)
[2018-03-05] MEDS: NIFEDIPINE CR 30 MG TAB PO SCH ×2 (08:44→20:07)
[2018-03-05] MEDS: ASPIRIN 81 MG ENTERIC COATED PO SCH (08:44)
[2018-03-05] MEDS ORDERED: ASPIRIN 325 MG TAB PO SCH (09:00)
--- NOTE | 2018-03-05 11:15 | Progress Note ---
DATE: March 05, 2018 TIME: 6:46 a.m. OVERNIGHT: The patient underwent heart catheterization with a stent to the circumflex artery. REVIEW OF SYSTEMS: Denies any chest pain. PHYSICAL EXAMINATION VITAL SIGNS: Reviewed. GENERAL: A tired-appearing woman resting in bed. HEENT: Anicteric. CARDIOVASCULAR: Normal S1 and S2. LUNGS: Moderate breath sounds. ABDOMEN: Soft and nontender. : She has a right groin with dressing in place. Soft. Area mildly tender. Thompson in place. EXTREMITIES: No edema. SKIN: Dry. PSYCHIATRIC: Flat affect. LABS: Reviewed. MEDICATIONS: Reviewed. ASSESSMENT: A 43-year-old woman with: 1. Chest pain. 2. Coronary artery disease of the circumflex artery and right coronary artery, status post stent to the circumflex artery. 3. Congestive heart failure with leg edema. 4. Acute transaminitis. 5. Diabetes mellitus: Hemoglobin A1c 9.6, LDL 117 and triglycerides 151. 6. Morbid obesity. 7. Hypertensive urgency. 8. Hematuria. PLAN 1. Continue management. The patient is status post stent placement to the circumflex artery. Possible stent placement to the right coronary artery outpatient. 2. Follow up electrophysiology recommendations. 3. Hematuria has resolved. 4. The patient does not have anemia. 5. Glucose is somewhat controlled. Will continue to follow and treat as appropriate. Will continue the insulin Levemir 26 units at bedtime. 6. Continue Plavix, statin, calcium channel leah, beta leah, and continue amiodarone. 7. Continue amiodarone. The patient had arrhythmia. Will follow electrophysiology recommendations. Job#: [id number] OR
[2018-03-05 11:39] VITALS: BP 142/77
[2018-03-05 16:30] VITALS: BP 139/81
[2018-03-05 19:15] VITALS: BP 144/80
[2018-03-05] MEDS: ATORVASTATIN 20 MG TAB PO SCH (20:07)
[2018-03-05] MEDS ORDERED: INSULIN DETEMIR 100 UNIT/ML PEN SQ SCH (21:00)
[2018-03-06] VITALS: BP 140/79
[2018-03-06 04:00] VITALS: BP 137/90
[2018-03-06] MEDS ORDERED: NITROSTAT0.4 MG SL (06:48)
[2018-03-06] MEDS ORDERED: NIFEDIPINE ER30 M1 PO (06:48)
[2018-03-06] MEDS ORDERED: LABETALOL HCL100 MG PO (06:48)
[2018-03-06] MEDS ORDERED: AMIODARONE HCL200 MG PO (06:48)
[2018-03-06] MEDS ORDERED: ASPIRIN EC81 MG PO (06:48)
[2018-03-06] MEDS ORDERED: FAMOTIDINE20 MG PO (06:48)
[2018-03-06] MEDS ORDERED: Insulin Lispro SQ (06:48)
[2018-03-06] MEDS ORDERED: LIPITOR20 MG PO (06:48)
[2018-03-06] MEDS ORDERED: Insulin Detemir SQ (06:48)
[2018-03-06] MEDS ORDERED: PLAVIX75 MG PO (06:48)
[2018-03-06] MEDS: FAMOTIDINE 20 MG TAB PO SCH (08:00)
[2018-03-06] MEDS: INSULIN LISPRO 100 UNIT/1 ML 3ML VIAL SQ SCH ×4 (08:00→11:52)
[2018-03-06] MEDS: ASPIRIN 81 MG ENTERIC COATED PO SCH (08:41)
[2018-03-06] MEDS: LABETALOL HCL 100 MG TAB PO SCH (08:41)
[2018-03-06] MEDS: CLOPIDOGREL BISULFATE 75 MG TAB PO SCH (08:41)
[2018-03-06] MEDS: NIFEDIPINE CR 30 MG TAB PO SCH (08:41)
[2018-03-06] MEDS: FUROSEMIDE INJ 10 MG/ML 2 ML VIAL IV SCH (08:41)
[2018-03-06] MEDS ORDERED: AMIODARONE HCL 200 MG TAB PO SCH (09:00)
[2018-03-06 09:54] VITALS: BP 112/62
[2018-03-06] MEDS ORDERED: LOSARTAN POTASSIUM 25 MG TAB PO SCH (10:07)
[2018-03-06 13:00] VITALS: BP 149/75
[2018-03-06] MEDS ORDERED: LEVEMIR100 UNIT/1 SC (13:56)
[2018-03-06] MEDS ORDERED: HUMALOG100 UNIT/1 SC (13:58)
[2018-03-07] MEDS ORDERED: RIVAROXABAN 15 MG TABLET PO SCH (09:00)
[2018-03-07] MEDS ORDERED: LOSARTAN POTASSIUM 25 MG TAB PO SCH (09:00)
[2018-03-07] MEDS ORDERED: LOSARTAN POTASSIUM 100 MG TAB PO SCH (09:00)
[2018-03-07] MEDS ORDERED: NIFEDIPINE CR 30 MG TAB PO SCH (09:00)
--- NOTE | 2018-03-08 00:17 | Discharge Summary ---
PRINCIPAL DIAGNOSES 1. Coronary artery disease, status post stent to the circumflex artery. 2. Congestive heart failure with leg edema. 3. Acute rhabdomyolysis. 4. Diabetes mellitus, type 2, hemoglobin A1c 9.6, low-density lipoprotein 117, triglyceride 151. 5. Morbid obesity. 6. Hypertensive urgency. 7. Hematuria. 8. Cardiac arrhythmia. SECONDARY DIAGNOSIS: Diabetes mellitus, type 2. CHIEF COMPLAINT: Chest pain. HISTORY OF PRESENT ILLNESS: A 48-year-old man with above-mentioned chest pain. Please see H and P for further details. HOSPITAL COURSE: Patient had chest pain on arrival. Catheterization, found to have a circumflex artery disease and right coronary artery disease with circumflex artery leg edema. Also had acute transaminitis, diabetes mellitus, type 2 with elevated hemoglobin A1c 9.6, LDL 117, triglyceride 151. Patient with morbid obesity hypertensive urgency. Treated with medication regimen. Did develop hematuria due to heparin use. This quickly resolved. CT scan imaging was negative. Patient did well, subsequently transitioned out of the hospital. Patient started on amiodarone for cardiac arrhythmia. DISCHARGE MEDICATION: Per electronic medical record. FOLLOWUP 1. Follow up with Dr. Apryl Sanz in 1 week. 2. Cardiology in 2 weeks. 3. Urology as directed. CONDITION ON DISCHARGE: Stable and improved. DISCHARGE LOCATION: Home. APRYL SANZ MD Job#: [id number] CQ
== END 2018-03-06 15:03 | disposition home or self-care (01) | DRG 246 ==
LOC: ER 14:57 → ERHOLD 19:17 → IMCU 20:57 → OBSVTOIN 02-28 14:53 → MED/SURG2 02-28 19:56 → MED/SURG 03-02 09:31 → IMCU 03-04 15:36
PROVIDERS: ADMIT Internal Medicine; ATTEND Internal Medicine
PROC: 4A023N7 Measurement of Cardiac Sampling and Pressure, Left Heart, Percutaneous Approach (ICD-10-PCS; principal; 2018-03-04)
PROC: 027034Z Dilation of Coronary Artery, One Artery with Drug-eluting Intraluminal Device, Percutaneous Approach (ICD-10-PCS; 2018-03-04)
PROC: B2151ZZ Fluoroscopy of Left Heart using Low Osmolar Contrast (ICD-10-PCS; 2018-03-04)
PROC: B2111ZZ Fluoroscopy of Multiple Coronary Arteries using Low Osmolar Contrast (ICD-10-PCS; 2018-03-04)
DX: I25.10 Atherosclerotic heart disease of native coronary artery without angina pectoris (principal); L89.323 Pressure ulcer of left buttock, stage 3; I69.354 Hemiplegia and hemiparesis following cerebral infarction affecting left non-dominant side; Z68.42 Body mass index [BMI] 45.0-49.9, adult; R07.89 Other chest pain; R06.00 Dyspnea, unspecified; R00.0 Tachycardia, unspecified; R94.31 Abnormal electrocardiogram [ECG] [EKG]; L89.312 Pressure ulcer of right buttock, stage 2; I50.9 Heart failure, unspecified; R74.0 Nonspecific elevation of levels of transaminase and lactic acid dehydrogenase [LDH]; E66.01 Morbid (severe) obesity due to excess calories; I16.0 Hypertensive urgency; Z95.5 Presence of coronary angioplasty implant and graft; Z88.5 Allergy status to narcotic agent; Z88.0 Allergy status to penicillin; F17.210 Nicotine dependence, cigarettes, uncomplicated; R00.2 Palpitations; J44.9 Chronic obstructive pulmonary disease, unspecified; R31.0 Gross hematuria; R31.9 Hematuria, unspecified; E11.65 Type 2 diabetes mellitus with hyperglycemia; R16.0 Hepatomegaly, not elsewhere classified
CPT/HCPCS: 36140; 36415; 71045; 71260; 74178; 77002; 80048; 80053; 80061; 82550; 82553; 82948; 83036; 83880; 84439; 84443; 84484; 84702; 85025; 85610; 85730; 92920; 93005; 93306; 93458; 94660; 96360; 96372; 99285; C1766; C9600; G0378; J1327; J1644; J1650; J1940; J2001; J2250; J2310; J7030; J7040; J7050; Q9967